=== PATIENT | male | born 1965 | race Caucasian/White ===

== ENCOUNTER 2023-02-22 16:00 | Inpatient (IN) | payer MEDICAID ==
[2023-02-22 16:55] VITALS: BP 166/94
[2023-02-22] MEDS ORDERED: POTASSIUM CHLORIDE 20MEQ/100ML 100 ML IV PRN (17:30)
[2023-02-22] MEDS ORDERED: ACETAMINOPHEN 325 MG TAB PO PRN (17:30)
[2023-02-22] MEDS ORDERED: MAGNESIUM 2GM PREMIX 50ML 50 ML IV PRN (17:30)
[2023-02-22] MEDS ORDERED: KCL 20 MEQ ERTAB PO PRN (17:30)
[2023-02-22] MEDS ORDERED: POTASSIUM CHLORIDE 10% ELIXIR 20 MEQ/15 ML UDCUP PO PRN (17:30)
[2023-02-22 17:36] LABS: BASOPHILS % (AUTO) 0.3 % (0.0-5.0); EOSINOPHILS % (AUTO) 0.2 % (0.0-8.0); HEMATOCRIT 43.9 % (42-54); LYMPHOCYTES % (AUTO) 10.2 % (21.0-51.0); MEAN CORPUSCULAR HEMOGLOBIN 29.4 pg (27.0-33.0); MEAN CORPUSCULAR HGB CONC 33.9 g/dL (32.0-36.0); MEAN CORPUSCULAR VOLUME 86.8 fL (79-99); MONOCYTES % (AUTO) 6.6 % (3.0-13.0); NEUTROPHILS % (AUTO) 82.3 % (40.0-77.0); PLATELET COUNT (AUTO) 156 K/uL (130-400); RED BLOOD CELL COUNT(AUTO) 5.06 MIL/uL (4.50-6.20); RED CELL DISTRIBUTION WIDTH 12.4 % (11.0-15.5); WHITE BLOOD COUNT (AUTO) 10.5 K/uL (4.8-10.8)
[2023-02-22 17:44] LABS: CREATININE 1.3 mg/dL (0.5-1.5); POTASSIUM 4.4 mmol/L (3.5-5.1)
[2023-02-22 17:48] LABS: HEMOGLOBIN A1C 5.2 % (4.0-6.0)
[2023-02-22 17:53] LABS: ALBUMIN 3.8 g/dL (3.5-5.0); MAGNESIUM 1.8 mg/dL (1.80-2.40); TOTAL PROTEIN, SERUM 6.9 g/dL (6.0-8.3)
[2023-02-22] MEDS: KETOROLAC 15MG/ML VIAL (15MG/ML) IV PRN (18:28)
[2023-02-22] MEDS: 0.9%NACL 1000ML 1,000 ML IV SCH (18:51)
[2023-02-22 20:03] VITALS: BP 154/93
[2023-02-22] MEDS ORDERED: LOSA100T59 PO (20:11)
[2023-02-22] MEDS ORDERED: [UNRECOGNIZED DRUG - CODE] PO (20:11)
[2023-02-22] MEDS ORDERED: AEC81 PO (20:33)
[2023-02-22] MEDS: TAMSULOSIN HCL 0.4 MG CAP.ER.24H PO SCH (20:51)
[2023-02-22] MEDS: MORPHINE 2 MG SYG IVP PRN (21:01)
[2023-02-22 23:20] VITALS: BP 139/81
[2023-02-23] MEDS: KETOROLAC 15MG/ML VIAL (15MG/ML) IV PRN (02:41)
[2023-02-23] MEDS: 0.9%NACL 1000ML 1,000 ML IV SCH ×3 (03:32→23:30)
[2023-02-23 03:40] VITALS: BP 156/83
[2023-02-23 05:45] LABS: BASOPHILS % (AUTO) 0.3 % (0.0-5.0); EOSINOPHILS % (AUTO) 0.6 % (0.0-8.0); LYMPHOCYTES % (AUTO) 13.4 % (21.0-51.0); MEAN CORPUSCULAR HEMOGLOBIN 29.8 pg (27.0-33.0); MEAN CORPUSCULAR HGB CONC 33.8 g/dL (32.0-36.0); MEAN CORPUSCULAR VOLUME 88.1 fL (79-99); MONOCYTES % (AUTO) 9.3 % (3.0-13.0); NEUTROPHILS % (AUTO) 76.2 % (40.0-77.0); PLATELET COUNT (AUTO) 141 K/uL (130-400); RED BLOOD CELL COUNT(AUTO) 4.77 MIL/uL (4.50-6.20); RED CELL DISTRIBUTION WIDTH 12.3 % (11.0-15.5); WHITE BLOOD COUNT (AUTO) 9.7 K/uL (4.8-10.8)
[2023-02-23 06:07] LABS: ALBUMIN 3.1 g/dL (3.5-5.0); CREATININE 1.6 mg/dL (0.5-1.5); POTASSIUM 4.3 mmol/L (3.5-5.1); TOTAL PROTEIN, SERUM 6.1 g/dL (6.0-8.3)
[2023-02-23 08:00] VITALS: BP 145/71
[2023-02-23] MEDS ORDERED: TAMSULOSIN HCL 0.4 MG CAP.ER.24H PO SCH (09:00)
[2023-02-23] MEDS: TAMSULOSIN HCL 0.4 MG CAP.ER.24H PO SCH (09:00)
[2023-02-23] MEDS: PANTOPRAZOLE 40 MG/VIAL IVP SCH (09:00)
[2023-02-23] MEDS ORDERED: IOHEXOL 350 MG/ML 100ML INFUS..BTL IV ONE (10:06)
[2023-02-23 12:00] VITALS: BP 138/73
[2023-02-23 16:00] VITALS: BP 153/78
[2023-02-23 20:19] VITALS: BP 152/92
[2023-02-23] MEDS: LOSARTAN 100 MG TABLET PO SCH (20:57)
[2023-02-23 23:23] VITALS: BP 153/96
[2023-02-24] MEDS: KETOROLAC 15MG/ML VIAL (15MG/ML) IV PRN (03:00)
[2023-02-24 03:17] VITALS: BP 138/92
[2023-02-24] MEDS: MORPHINE 2 MG SYG IVP PRN (04:01)
[2023-02-24] MEDS ORDERED: MORPHINE 4 MG SYG IVP SCH (05:08)
[2023-02-24 06:14] LABS: BASOPHILS % (AUTO) 0.3 % (0.0-5.0); LYMPHOCYTES % (AUTO) 18.6 % (21.0-51.0); MEAN CORPUSCULAR HEMOGLOBIN 29.8 pg (27.0-33.0); MEAN CORPUSCULAR HGB CONC 33.4 g/dL (32.0-36.0); MEAN CORPUSCULAR VOLUME 89.1 fL (79-99); MONOCYTES % (AUTO) 7.3 % (3.0-13.0); NEUTROPHILS % (AUTO) 72.5 % (40.0-77.0); PLATELET COUNT (AUTO) 133 K/uL (130-400); RED CELL DISTRIBUTION WIDTH 12.1 % (11.0-15.5); WHITE BLOOD COUNT (AUTO) 8.9 K/uL (4.8-10.8)
[2023-02-24 06:28] LABS: CREATININE 1.2 mg/dL (0.5-1.5); POTASSIUM 4.2 mmol/L (3.5-5.1)
[2023-02-24 07:00] VITALS: BP 158/93
[2023-02-24] MEDS: TAMSULOSIN HCL 0.4 MG CAP.ER.24H PO SCH (09:52)
[2023-02-24] MEDS: PANTOPRAZOLE 40 MG/VIAL IVP SCH (09:52)
[2023-02-24] MEDS: 0.9%NACL 1000ML 1,000 ML IV SCH ×2 (10:03→21:26)
[2023-02-24 11:00] VITALS: BP 160/95
[2023-02-24] MEDS ORDERED: TAMS-1 PO (11:45)
[2023-02-24] MEDS ORDERED: LACTULOSE 20 GM/30 ML UDCUP PO PRN (12:00)
[2023-02-24] MEDS ORDERED: AMLODIPINE 5 MG TAB PO ONE (12:00)
[2023-02-24 16:00] VITALS: BP 174/99
[2023-02-24] MEDS: HYDRALAZINE 20MG/ML VIAL IV PRN (16:49)
[2023-02-24 20:11] VITALS: BP 164/97
[2023-02-24] MEDS: LOSARTAN 100 MG TABLET PO SCH (21:26)
[2023-02-24 23:42] VITALS: BP 158/96
[2023-02-25 04:41] VITALS: BP 155/81
[2023-02-25 07:33] VITALS: BP 143/95
[2023-02-25] MEDS: PANTOPRAZOLE 40 MG/VIAL IVP SCH (09:15)
[2023-02-25] MEDS: TAMSULOSIN HCL 0.4 MG CAP.ER.24H PO SCH (09:15)
[2023-02-25] MEDS: 0.9%NACL 1000ML 1,000 ML IV SCH ×2 (09:22→15:30)
[2023-02-25 11:40] VITALS: BP 170/103
[2023-02-25] MEDS: HYDRALAZINE 20MG/ML VIAL IV PRN (12:48)
[2023-02-25 16:53] VITALS: BP 158/92
== END 2023-02-25 17:40 | disposition home or self-care (01) | DRG 465 ==
LOC: 3AH 16:57
PROVIDERS: ADMIT Internal Medicine; ATTEND Internal Medicine
DX: N13.2 Hydronephrosis with renal and ureteral calculous obstruction (principal); N17.9 Acute kidney failure, unspecified; E66.09 Other obesity due to excess calories; I10 Essential (primary) hypertension; Z79.899 Other long term (current) drug therapy; N13.9 Obstructive and reflux uropathy, unspecified
CPT/HCPCS: 36415; 74400; 76770; 80048; 80053; 83036; 83735; 85025; C9113; G0378; J0360; J1885; J2270; Q9967